=== PATIENT | male | born 1950 | race Caucasian/White ===

== ENCOUNTER → 2024-12-01 11:29 | Outpatient (REF) | payer OTHER, SELFPAY | LOC: HWRAD 11:29 | PROVIDERS: ATTENDING PHYSICIAN Family Medicine | DX: I10 Essential (primary) hypertension (principal); E78.2 Mixed hyperlipidemia; Z00.01 Encounter for general adult medical examination with abnormal findings; N40.0 Benign prostatic hyperplasia without lower urinary tract symptoms; M79.673 Pain in unspecified foot; M25.559 Pain in unspecified hip | CPT/HCPCS: 73522; 73630 ==

== ENCOUNTER → 2025-06-08 07:34 | Outpatient (REF) | payer OTHER, SELFPAY | LOC: RAD 07:34 | PROVIDERS: ATTENDING PHYSICIAN Family Medicine | DX: I10 Essential (primary) hypertension (principal); E78.2 Mixed hyperlipidemia; M25.569 Pain in unspecified knee; M79.10 Myalgia, unspecified site; M25.559 Pain in unspecified hip; M79.606 Pain in leg, unspecified | CPT/HCPCS: 72110; 73564; 93970 ==